=== PATIENT | female | born 1945 | race Caucasian/White ===

== ENCOUNTER 2016-11-14 14:51 | Outpatient (CLI) | payer OTHER ==
[2013-11-15 13:51] VITALS: BMI 49.1
== END 2016-11-14 14:52 | disposition home or self-care (01) ==
LOC: AMBL 14:51
PROVIDERS: ATTEND Internal Medicine
DX: S00.83XA Contusion of other part of head, initial encounter (principal); R51 Headache; M54.2 Cervicalgia; M54.9 Dorsalgia, unspecified; R07.89 Other chest pain; R04.0 Epistaxis; W01.0XXA Fall on same level from slipping, tripping and stumbling without subsequent striking against object, initial encounter; Y92.512 Supermarket, store or market as the place of occurrence of the external cause

== ENCOUNTER 2017-01-30 06:53 | Outpatient (CLI) ==
[2013-11-15 13:51] VITALS: BMI 49.1
--- NOTE | 2017-01-30 08:04 | DI ---
EXAM: Two-view chest HISTORY: Edema TECHNIQUE: Frontal and lateral views of the chest were obtained. Comparison 04/06/2012. FINDINGS: The heart is normal size. Lungs are clear. The pulmonary vasculature appears normal. P ostoperative changes are seen within the right shoulder. IMPRESSION: No active cardiopulmonary disease.
== END 2017-01-30 06:54 | disposition home or self-care (01) ==
LOC: CAR 06:53
PROVIDERS: ATTEND Physician Assistant
DX: R60.0 Localized edema (principal)

== ENCOUNTER 2017-09-21 10:03 | Emergency (ER) ==
[2017-09-21 10:12] VITALS: BP 145/63; TEMP 98.1; BMI 40.2
--- NOTE | 2017-09-21 10:45 | DI ---
EXAM: Three views of the right wrist. History: Right wrist trauma. Comparison: Right hand radiograph 11/15/2013 Findings: Osteopenia. Negative ulnar variance. Mild to moderate polyarticular joint space narrowing . Question nondisplaced fracture at the fifth metacarpal base. No dislocation. Impression: 1. Question nondisplaced fracture at the fifth metacarpal base which does not appear acute and is ei ther subacute or chronic. 2. Negative ulnar variance which can predispose to kienbocks disease
--- NOTE | 2017-09-21 10:46 | DI ---
EXAM: Three views of the right hand. History: Right hand trauma. Findings: Osteopenia. Question nondisplaced fracture at the fifth metacarpal base with osseous irre gularity. Mild to moderate polyarticular joint space narrowing. Negative ulnar variance. Impression: 1. Suspect age indeterminate nondisplaced fracture at the fifth metacarpal base which is either suba cute or chronic. 2. Arthritis. 3. Negative ulnar variance which can predispose to kienbocks disease
--- NOTE | 2017-09-21 10:59 | ED.PDOC ---
General ED Provider: Dr. YANIRA KULKARNI Chief Complaint: Hand Pain/Injury Stated Complaint: hand/ wrist injury right side Time Seen by Physician: 10:10 (seen with josr at all times ) Information Source: Patient Exam Limitations: No limitations Primary Care Provider: DOLORES DRAKE Nursing and Triage Documentation Reviewed and Agree: Yes Reviewed sepsis parameters & appropriate labs ordered?: Yes (foosh 1 day ago no other injury reported ) System Inflammatory Response Syndrome: Not Applicable Sepsis Protocol: For patient's 13 years and over: Temp is 96.8 and below OR 101 and greater Pulse >90 BPM Resp >20/minute Acutely Altered Mental Status Are patient's symptoms suggestive of a new infection, such as: -Pneumonia -Skin, Soft Tissue -Endocarditis -UTI -Bone, Joint Infection -Implantable Device -Acute Abdominal Infection -Wound Infection -Meningitis -Blood Stream Catheter Infection -Unknown System Inflammatory Response Syndrome: Not Applicable Musculoskeletal Complaint Exam - Hand/Wrist Complaint/Exam Location of Pain: Reports: Right, Hand Mechanism of Injury: Reports: Trauma Onset/Duration: 1 day no assocaited injuries Symptoms Are: Still present Onset of Pain: Reports: Hours Initial Severity: Mild Current Severity: Mild Location: Reports: Discrete Character: Reports: Aching Alleviating: Reports: Rest Aggravating: Reports: Movement Associated Signs and Symptoms: Reports: Swelling. Denies: Redness, Bruising, Fever, Weakness, Numbness, Tingling Dominant Hand: Right Related Surgical History: Reports: None Hand/Wrist Findings: Present: Swelling (wrist). Absent: Abnormal contour, Rotation, Phalen's Sign, Laceration, Nail avulsion, Subungal hematoma, Erythema , Warmth, Blisters Tenderness: Present: Radius, Ulna. Absent: Snuff box, Carpal, Metacarpal, Phalanx Differential Diagnoses: Closed Fracture, Sprain, Strain Review of Systems - Review Of Systems Constitutional: Reports: No symptoms Eyes: Reports: No symptoms Ears, Nose, Mouth, Throat: Reports: No symptoms Respiratory: Reports: No symptoms Cardiac: Reports: No symptoms GI: Reports: No symptoms : Reports: No symptoms Musculoskeletal: Reports: Joint pain (right wrist). Denies: Back pain, Neck pain Skin: Reports: No symptoms Neurological: Reports: No symptoms Endocrine: Reports: No symptoms Hematologic/Lymphatic: Reports: No symptoms All Other Systems: Reviewed and Negative Past Medical History - Past Medical History Previously Healthy: No Endocrine: Reports: Dyslipidemia Cardiovascular: Reports: None Respiratory: Reports: None Hematological: Reports: None Gastrointestinal: Reports: None Genitourinary: Reports: None Neuro/Psych: Reports: None Musculoskeletal: Reports: None Cancer: Reports: None Last Menstrual Period: N/A - Surgical History General Surgical History: Reports: None - Family History Family History: Reports: None - Social History Smoking Status: Never smoker Hx Substance Use: No Alcohol Screening: None - Immunizations Tetanus Shot up to Date: No Physical Exam - Physical Exam Appearance: Well-appearing, No pain distress, Well-nourished Eyes: ZULEIMA, EOMI, Conjunctiva clear ENT: Ears normal, Nose normal, Oropharynx normal Respiratory: Airway patent, Breath sounds clear, Breath sounds equal, Respirations nonlabored Cardiovascular: RRR, Pulses normal, No rub, No murmur GI/: Soft, Nontender, No masses, Bowel sounds normal, No Organomegaly Musculoskeletal: Limited ROM (right wrist) Skin: Warm, Dry, Normal color Neurological: Sensation intact, Motor intact, Reflexes intact, Cranial nerves intact, Alert, Oriented Psychiatric: Affect appropriate, Mood appropriate Interpretation - Radiology Interpretation Radiology Interpretation By: Radiologist (possible fx wrist) Critical Care Note - Critical Care Note Total Time (mins): 0 Course - Course Orders, Labs, Meds: Orders Category Date Time Status HAND, RIGHT 3 VIEWS Stat RADS 09/21/17 10:23 Ordered WRIST, RIGHT 3 VIEWS Stat RADS 09/21/17 10:23 Ordered Vital Signs: Temp Pulse Resp BP Pulse Ox 09/21/17 10:06 98.1 F 74 20 145/63 H 98 Departure - Departure Time of Disposition: 11:00 (D/C INST GIVE WITH PT'S NURSE PRESENT SPLINT APPLIED BY RN POSTION AND STATUS OF SPLINT CHECK BY MD DANIAL SANCHEZ [facility]) Disposition: HOME SELF-CARE Discharge Problem: Wrist fracture, closed Qualifiers: Encounter type: initial encounter Laterality: right Qualified Code(s): S62.101A - Fracture of unspecified carpal bone, right wrist, initial encounter for closed fracture Instructions: Wrist Injury (ED), Wrist Fracture in Adults (ED) Condition: Good Pt referred to PMD for follow-up: Yes IPMP verified?: Yes Additional Instructions: Please call your Family Physician as soon as possible to schedule a follow-up appointment.MUST SEE YOUR DOCTOR YOUR WRIST IS BROKEN Allergies/Adverse Reactions: Allergies diphenhydramine [From Benadryl] Adverse Reaction (Verified 09/21/17 10:19) Home Medications: Ambulatory Orders Aspirin 81 mg PO DAILY 09/21/17 Cetirizine HCl [Zyrtec] 10 mg PO BID 09/21/17 Cholecalciferol (Vitamin D3) [Vitamin D3] 1,000 unit PO DAILY 09/21/17
== END 2017-09-21 11:18 | disposition home or self-care (01) ==
LOC: ED 10:03
DX: S62.101A Fracture of unspecified carpal bone, right wrist, initial encounter for closed fracture (principal); W19.XXXA Unspecified fall, initial encounter
CPT/HCPCS: 99283

== ENCOUNTER 2017-12-15 09:48 | Emergency (ER) | payer OTHER ==
[2017-12-15 09:56] VITALS: BP 179/86; TEMP 96.8; BMI 40.8
--- NOTE | 2017-12-15 10:38 | ED.PDOC ---
General ED Provider: Dr. JUDI BARROSO Chief Complaint: Fall Stated Complaint: Patient presents for evaluation of Lt sided chest wall and shoulder pain, Rt Knee pain and lat chest wall pain. States she was attempting to pass through a door this past Thursday night, lost her balance and fell striking her Left anterior chest, Lt shoulder against the door jamb then fell to the floor striking her Rt Knee. As she was attempting to catch herself, she strained her lt hand, thumb and has bruising over base of lt thumb. Denies striking her head, LOC or experiencing LOC. Only started to experience discomfort yesterday. Time Seen by Physician: 10:34 Mode of Arrival: Walk-In Information Source: Patient Exam Limitations: No limitations Primary Care Provider: DOLORES DRAKE Nursing and Triage Documentation Reviewed and Agree: Yes Reviewed sepsis parameters & appropriate labs ordered?: Yes System Inflammatory Response Syndrome: Not Applicable Sepsis Protocol: For patient's 13 years and over: Temp is 96.8 and below OR 101 and greater Pulse >90 BPM Resp >20/minute Acutely Altered Mental Status Are patient's symptoms suggestive of a new infection, such as: -Pneumonia -Skin, Soft Tissue -Endocarditis -UTI -Bone, Joint Infection -Implantable Device -Acute Abdominal Infection -Wound Infection -Meningitis -Blood Stream Catheter Infection -Unknown System Inflammatory Response Syndrome: Not Applicable Musculoskeletal Complaint Exam - Shoulder Pain Complaint/Exam Mechanism of Injury: Reports: Trauma Onset/Duration: 24 hr Symptoms Are: Still present Timing: Constant Initial Severity: Moderate Current Severity: Moderate Location: Reports: Diffuse (Shoulder, lt anterior chest wall) Character: Reports: Sharp Alleviating: Reports: Rest Aggravating: Reports: Movement Associated Signs and Symptoms: Reports: Swelling, Bruising Related History: Reports: Similar episode, Dominant hand right Non-Orthopedic Risk Factors: Reports: None DVT Risk Factors: Reports: None Septic Arthritis Risk Factors: Reports: None Related Surgical History: Reports: None Shoulder Findings: Absent: Swelling, Ecchymosis, Abnormal contour, Ligamentous instability, Laceration, Erythema, Warmth, Blisters Limited Range of Motion: Present: Abduction, Internal rotation Differential Diagnoses: Arthritis, Contusion, Closed Fracture, Sprain, Strain Review of Systems - Review Of Systems Constitutional: Reports: No symptoms Eyes: Reports: No symptoms Ears, Nose, Mouth, Throat: Reports: No symptoms Respiratory: Reports: No symptoms Cardiac: Reports: No symptoms GI: Reports: No symptoms : Reports: No symptoms Musculoskeletal: Reports: No symptoms, Back pain, Joint pain, Joint swelling, Muscle pain, Muscle stiffness (Hand, chest wall and knee pain , Lt shoulder pain ) Skin: Reports: No symptoms Neurological: Reports: No symptoms Endocrine: Reports: No symptoms Hematologic/Lymphatic: Reports: No symptoms All Other Systems: Reviewed and Negative Past Medical History - Past Medical History Previously Healthy: No Endocrine: Reports: Dyslipidemia Cardiovascular: Reports: None Respiratory: Reports: None Hematological: Reports: None Gastrointestinal: Reports: None Genitourinary: Reports: None Neuro/Psych: Reports: None Musculoskeletal: Reports: None Cancer: Reports: None Last Menstrual Period: NONE - Surgical History General Surgical History: Reports: None - Family History Family History: Reports: None - Social History Smoking Status: Never smoker Hx Substance Use: No Alcohol Screening: None Physical Exam - Physical Exam Appearance: Well-appearing, No pain distress, Well-nourished Ill-appearing: None Pain Distress: Mild Eyes: ZULEIMA, EOMI, Conjunctiva clear ENT: Ears normal, Nose normal, Oropharynx normal Respiratory: Airway patent, Breath sounds clear, Breath sounds equal, Respirations nonlabored Cardiovascular: RRR, Pulses normal, No rub, No murmur GI/: Soft, Nontender, No masses, Bowel sounds normal, No Organomegaly Musculoskeletal: Normal strength, ROM intact, No edema, No calf tenderness, Limited ROM (Tenderness Lt ant chest wall and shoulder, Rt Knee tenderness and edema) Skin: Warm, Dry, Normal color Neurological: Sensation intact, Motor intact, Reflexes intact, Cranial nerves intact, Alert, Oriented Psychiatric: Affect appropriate, Mood appropriate Interpretation - Radiology Interpretation Radiology Interpretation By: Radiologist Radiology Results: No acute changes Exam Interpreted: Other (xrays ) Critical Care Note - Critical Care Note Total Time (mins): 30 Course - Course Orders, Labs, Meds: Orders Category Date Time Status Ketorolac Tromethamine [Toradol] MEDS 12/15/17 10:53 Discontinued 15 mg IM ONCE STA CHEST, 2 VIEWS PA & LAT Stat RADS 12/15/17 10:[address] KNEE RIGHT WITHOUT CONTRAST Stat RADS 12/15/17 12:46 Completed HAND, LEFT 3 VIEWS Stat RADS 12/15/17 10:48 Completed KNEE, RIGHT 4 VIEWS Stat RADS 12/15/17 10:50 Completed RIBS, UNILATERAL LEFT Stat RADS 12/15/17 10:53 Completed SHOULDER, LEFT MIN 2V Stat RADS 12/15/17 10:52 Completed Medications Discontinued Medications Generic Name Dose Route Start Last Admin Trade Name Ana Luisa PRN Reason Stop Dose Admin Ketorolac Tromethamine 15 mg 12/15/17 10:53 12/15/17 12:02 Toradol IM 12/15/17 10:54 15 mg ONCE STA Administration Vital Signs: Temp Pulse Resp BP Pulse Ox 12/15/17 09:48 96.8 F L 66 18 179/86 H 97 Departure - Departure Time of Disposition: 14:15 Disposition: HOME SELF-CARE Discharge Problem: Contusion, chest wall, Contusion, hand, Knee strain, Fracture of hand with routine healing Instructions: Contusion in Adults (ED), Knee Pain (ED) Condition: Good Pt referred to PMD for follow-up: Yes IPMP verified?: No Additional Instructions: Apply Ice to the area of discomfort Take analgesics as needed for pain Follow up Orthopedic surgeon for re evaluation Allergies/Adverse Reactions: Allergies diphenhydramine [From Benadryl] Adverse Reaction (Verified 12/15/17 09:56) Home Medications: Ambulatory Orders Aspirin 81 mg PO DAILY 09/21/17 Cetirizine HCl [Zyrtec] 10 mg PO BID 09/21/17 Cholecalciferol (Vitamin D3) [Vitamin D3] 1,000 unit PO DAILY 09/21/17 Transfer Form Completed: No Disposition Discussed With: Patient
[2017-12-15] MEDS ORDERED: TORADOL IM STA (10:53)
--- NOTE | 2017-12-15 11:31 | DI ---
EXAM: PA and lateral views of the chest HISTORY: Pain post fall COMPARISON: Chest x-ray 06/05/2017 FINDINGS: The cardiomediastinal silhouette is unchanged with atherosclerotic disease. There is no p neumothorax or pleural effusion. There is no consolidation, nodule or mass. The osseous structures demonstrate degenerative disease of the spine. There are surgical clips in the upper abdomen. IMPRESSION: 1. Cardiomediastinal silhouette is mildly enlarged. 2. No acute cardiopulmonary process or consolidation.
--- NOTE | 2017-12-15 11:34 | DI ---
EXAM: Radiographs, left rib HISTORY: Initial presentation for left rib pain following a fall. COMPARISON: Chest radiograph 06/05/2017. TECHNIQUE: Four views. FINDINGS/IMPRESSION: There are multiple old left-sided rib fractures. No acute left rib fractures seen. Left lung is aniceto ar without pleural effusion or pneumothorax.
--- NOTE | 2017-12-15 11:35 | DI ---
Exam: Four x-rays of the right knee. Comparison: None available. Reason for exam: Injury. FINDINGS: Operative changes are seen after right knee arthroplasty. Calcifications are seen in the medial tibial plateau adjacent to the operative site. There is no evidence of hardware complication. No large joint effusion. Impression: 1. Operative changes after right knee arthroplasty without evidence of hardware complication. 2. Soft tissue calcifications are seen adjacent to the medial and lateral tibial plateaus. Imaging f indings may represent postoperative change but may also represent fracture fragments. Recommend comp arison to previous imaging and correlation with the site of patient's pain.
--- NOTE | 2017-12-15 11:35 | DI ---
EXAM: Three views of the left shoulder HISTORY: Fall with pain. COMPARISON: None FINDINGS: There is no cortical irregularity or displaced fracture of the left shoulder. There is mild narrowing and degenerative change of the acromioclavicular joint. The glenohumeral joint is normal. The osseous structures are otherwise unremarkable. The soft tissues are normal. IMPRESSION: Mild degenerative disease of the acromioclavicular joint with no displaced fracture.
--- NOTE | 2017-12-15 11:41 | DI ---
EXAM: Left hand three-view HISTORY: Fall, swelling, discoloration bruising first digit COMPARISON: 11/15/2013 FINDINGS: There are mildly displaced fractures of the third and fourth middle phalanx with suggestio n of callus formation, likely subacute. No dislocation. Mild scattered osteoarthritis with severe o steoarthritis first CMC joint. IMPERSSION: 1. Mildly displaced fractures of the third and fourth middle phalanx with suggestion of callus format ion, likely subacute. 2. 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
--- NOTE | 2017-12-15 14:06 | CT ---
EXAM: CT right knee without contrast. HISTORY: Right knee trauma. COMPARISON: Radiograph earlier the same day. TECHNIQUE: Multiple axial images of the right knee were obtained without intravenous contrast. Imag es were reformatted in the sagittal and coronal planes. FINDINGS: Right total knee arthroplasty hardware components are present. Components appear well sea aldair. The bones are demineralized. No fracture or dislocation detected. There is subcutaneous edema in the calf. Mild subcutaneous edema seen in the posterior aspect of the distal thigh. No drainable fluid collection identified. No subcutaneous air detected. Muscular compartments appear intact. A therosclerotic calcifications are present IMPRESSION: No fracture or dislocation.
== END 2017-12-15 14:40 | disposition home or self-care (01) ==
LOC: ED 09:48
DX: S20.212A Contusion of left front wall of thorax, initial encounter (principal); S60.222A Contusion of left hand, initial encounter; S86.911A Strain of unspecified muscle(s) and tendon(s) at lower leg level, right leg, initial encounter; M25.512 Pain in left shoulder; S62.92XD Unspecified fracture of left hand, subsequent encounter for fracture with routine healing; W19.XXXA Unspecified fall, initial encounter
CPT/HCPCS: 96372; 99283